=== PATIENT | male | born 1975 | race Two or more races ===

== ENCOUNTER 2019-12-06 11:49 | Inpatient (IN) | payer OTHER ==
[~2019-12-06] VITALS: Ht 180.3 cm; Wt 230.0 kg
[2019-12-07] MEDS ORDERED: NORVASC5 MG PO (10:10)
[2019-12-07] MEDS ORDERED: LIPITOR40 MG PO (10:10)
[2019-12-07] MEDS ORDERED: INDAPAMIDE1.25 MG PO (10:11)
[2019-12-15] MEDS ORDERED: DICLOFENAC SODI75 MG PO (09:25)
[2019-12-15] MEDS ORDERED: OXYC1TAB9 PO (09:25)
[2019-12-15] MEDS ORDERED: INTESTINEX680 M1 PO (09:26)
== END 2019-12-15 13:30 | disposition home or self-care (01) | DRG 331 ==
LOC: EDUNIT# 12-07 09:00 → O/R 12-11 06:15 → SURH 12-11 06:15 → SURG 12-11 09:00 → SURH 12-11 14:24 → SURG 12-11 14:45 → SURH 12-15 13:30
PROVIDERS: ADMIT Surgery
PROC: 07BC4ZX Excision of Pelvis Lymphatic, Percutaneous Endoscopic Approach, Diagnostic (ICD-10-PCS; 2019-12-11)
PROC: 0DBF0ZZ Excision of Right Large Intestine, Open Approach (ICD-10-PCS; principal; 2019-12-11 14:45)
DX: C18.0 Malignant neoplasm of cecum (principal); I10 Essential (primary) hypertension

== ENCOUNTER → 2019-12-06 12:19 | Outpatient (CLI) | payer OTHER | END | disposition home or self-care (01) | LOC: LAB 12:19 | DX: N20.0 Calculus of kidney (principal) ==

== ENCOUNTER → 2019-12-06 | Outpatient (CLI) | payer OTHER ==
[~2019-12-06] MED LIST: INDAPAMIDE1.25 MG PO; LIPITOR40 MG PO; NORVASC5 MG PO
== END | disposition home or self-care (01) ==
LOC: TOM 12:26
DX: K92.2 Gastrointestinal hemorrhage, unspecified (principal); C18.0 Malignant neoplasm of cecum